=== PATIENT | female | born 1970 | race Caucasian/White ===

== ENCOUNTER 2017-03-25 17:43 | Emergency (ER) | payer BC ==
[2017-03-25 18:11] VITALS: BP 112/80; TEMP 98.2; BMI 21.0
--- NOTE | 2017-03-25 19:26 | PDOC ---
History of Present Illness - General History Source: Patient Exam Limitations: No Limitations - History of Present Illness Initial Comments: 03/25/17 19:59 The patient is a 46 year old female with significant past medical history of kidney stones and s/p recent right lithotripsy (03/22/17) who presents to the ED for 1 day of bilateral calf pain. Patient reports she had a right lithotripsy done [address] Pool. States she has not pass any stones since her procedure. Patient reports yesterday, she developed right calf pain that resolved on its own and developed pain to the left calf after waking up this morning. Patient contacted her urologist and was informed to come into the ER for further evaluation. Denies lightheadedness, diaphoresis, SOB, chest pain, palpitations, jaw pain, shoulder pain, arm pain, nausea, or vomiting. Denies any daily medications, including blood thinners. Denies h/o of blood clots, oral contraceptives use, or tobacco use. The patient denies fever, chills, cough, abdominal pain and diarrhea. The patient denies dysuria, hematuria, urgency, and frequency. Allergies: codeine Social History: Denies tobacco use. No alcohol or drug use reported. Family History: Dad from [place]. Mother has h/o of stroke Past Surgical History: s/p right lithotripsy (03/22/17) PCP: Dr. Tammy Macedo Urology: Dr. Victor Hugo Pool <Shelley Douglass - Last Filed: 03/25/17 19:59> <Roseann Hinds - Last Filed: 03/26/17 21:52> - General Chief Complaint: Pain Stated Complaint: POST OP PAIN Time Seen by Provider: 03/25/17 19:25 Past History <Shelley Douglass - Last Filed: 03/25/17 19:59> - Psycho/Social/Smoking Cessation Hx Anxiety: No Suicidal Ideation: No Smoking History: Never smoked Have you smoked in the past 12 months: No Information on smoking cessation initiated: No Hx Alcohol Use: No Drug/Substance Use Hx: No Substance Use Type: None <Roseann Hinds - Last Filed: 03/26/17 21:52> - Past Medical History Allergies/Adverse Reactions: Allergies Allergy/AdvReac Type Severity Reaction Status Date / Time codeine Allergy Uncoded 03/25/17 18:08 Review of Systems - Review of Systems Able to Perform ROS?: Yes Comments:: 03/25/17 19:59 CONSTITUTIONAL: Absent: fever, no chills, no fatigue EYES: Absent: visual changes ENT: Absent: ear pain, no sore throat CARDIOVASCULAR: Absent: chest pain, no palpitations RESPIRATORY: Absent: cough, no SOB GI: Absent: abdominal pain, no nausea, no vomiting, no constipation, no diarrhea GENITOURINARY: Absent: dysuria, no frequency, no hematuria MUSCULOSKELETAL: +bilateral calf pain Absent: back pain, no arthralgia, no myalgia SKIN: Absent: rash NEURO: Absent: headache <Shelley Douglass - Last Filed: 03/25/17 19:59> *Physical Exam - Vital Signs Last Vital Signs Temp Pulse Resp BP Pulse Ox 98.2 F 87 18 112/80 100 03/25/17 18:08 03/25/17 18:08 03/25/17 18:08 03/25/17 18:08 03/25/17 18:08 - Physical Exam Comments: 03/25/17 19:59 GENERAL: Well-appearing, well-nourished. No apparent distress. HEENT: Normocephalic, atraumatic. PERRL, EOM intact. CARDIOVASCULAR: Regular rate and rhythm. No murmurs, rubs, or gallops. Distal pulses are 2+ and symmetric. PULMONARY: No evidence of respiratory distress. Lungs clear to auscultation bilaterally. No wheezing, rales or rhonchi. ABDOMEN: Soft, non-distended, non-tender. MUSCULOSKELETAL Normal range of motion at all joints. No bony deformities or tenderness. No CVA tenderness. EXTREMITIES: No cyanosis. No clubbing. No calf swelling. Minimal left calf tenderness. SKIN: Warm, dry. No rash NEUROLOGICAL: No focal neurological deficits. <Shelley Douglass - Last Filed: 03/25/17 19:59> - Vital Signs Last Vital Signs Temp Pulse Resp BP Pulse Ox 98.2 F 87 18 112/80 100 03/25/17 18:08 03/25/17 18:08 03/25/17 18:08 03/25/17 18:08 03/25/17 18:08 <Roseann Hinds - Last Filed: 03/26/17 21:52> Medical Decision Making - Medical Decision Making 03/26/17 21:51 Pt has calf pain and fears she has a bilateral DVT after her lithotripsy procedure. She has no DVT on sono and she has normal D dimer. Home with PMD follow up. Pt's exam is normal. SHe was reassurred. <Roseann Hinds - Last Filed: 03/26/17 21:52> *DC/Admit/Observation/Transfer - Attestations Scribe Attestion: 03/25/17 20:00 Documentation prepared by Shelley Douglass, acting as medical imaging tech for Roseann Hinds MD/DO. <Shelley Douglass - Last Filed: 03/25/17 19:59> - Discharge Dispostion Admit: No <Roseann Hinds - Last Filed: 03/26/17 21:52> Diagnosis at time of Disposition: Calf pain - Discharge Dispostion Disposition: HOME Condition at time of disposition: Stable - Referrals Referrals: Tammy Macedo MD [Primary Care Provider] - - Patient Instructions Printed Discharge Instructions: DI for Leg Pain
[2017-03-25 21:35] VITALS: PULSE 75
== END 2017-03-25 21:47 | disposition home or self-care (01) ==
LOC: JER 17:43
DX: M79.662 Pain in left lower leg (principal); G89.18 Other acute postprocedural pain; M79.1 Myalgia
CPT/HCPCS: 36415; 85379; 93970-TC; 99282-25